=== PATIENT | female | born 1990 | race Caucasian/White ===

== ENCOUNTER 2023-07-06 13:05 | Outpatient (CLI) | payer OTHER | END 2023-07-06 13:06 | disposition home or self-care (01) | LOC: NST 13:05 | PROVIDERS: ATTEND Obstetrics & Gynecology Gynecology | DX: Z34.83 Encounter for supervision of other normal pregnancy, third trimester (principal) ==

== ENCOUNTER 2023-07-07 09:35 | Inpatient (IN) | payer OTHER ==
[~2023-07-07] VITALS: Ht 172.7 cm; Wt 78.5 kg
[2023-07-07] MEDS ORDERED: PRENATAL + DHA1 EAC1 PO (13:12)
== END 2023-07-09 13:24 | disposition home or self-care (01) | DRG 807 ==
LOC: SURG → LDR 09:35 → OB/GYN 20:18 → SURG 07-16 14:17
PROVIDERS: Obstetrics & Gynecology Maternal & Fetal Medicine; ADMIT Obstetrics & Gynecology; ATTEND Obstetrics & Gynecology
PROC: 10E0XZZ Delivery of Products of Conception, External Approach (ICD-10-PCS; principal; 2023-07-07)
PROC: 0KQM0ZZ Repair Perineum Muscle, Open Approach (ICD-10-PCS; 2023-07-07)
PROC: 4A1HXCZ Monitoring of Products of Conception, Cardiac Rate, External Approach (ICD-10-PCS; 2023-07-07)
DX: O70.1 Second degree perineal laceration during delivery (principal); Z37.0 Single live birth; Z3A.38 38 weeks gestation of pregnancy; Z20.822 Contact with and (suspected) exposure to COVID-19